=== PATIENT | male | born 1945 | race Caucasian/White ===

== ENCOUNTER 2020-01-14 20:57 | Inpatient (IN) | payer OTHER ==
[~2020-01-14] VITALS: Ht 180.3 cm; Wt 90.7 kg
[2020-01-14] MEDS ORDERED: TAMS0.4C PO (21:45)
[2020-01-14] MEDS ORDERED: AGRYLIN0.5 M1 PO (21:45)
[2020-01-14] MEDS ORDERED: COZAAR25 MG PO (21:45)
[2020-01-14] MEDS ORDERED: ADALAT CC90 MG PO (21:46)
[2020-01-14] MEDS ORDERED: SYNTHROID75 MCG PO (21:46)
[2020-01-14] MEDS ORDERED: TENORMIN100 M1 PO (21:46)
[2020-01-14] MEDS ORDERED: BUMETANIDE0.25 MG/1 IJ (21:46)
[2020-01-14] MEDS ORDERED: PROTONIX40 M1 PO (21:47)
[2020-01-14] MEDS ORDERED: LASIX20 MG PO (21:47)
[2020-01-14] MEDS ORDERED: ASPIR 8181 MG PO (21:47)
== END 2020-01-27 15:00 | disposition home health service (06) | DRG 673 ==
LOC: ER 20:57 → EDBD 21:11 → ER 21:11 → SURH 01-15 13:20 → MEDJ 01-15 13:20 → SURH 01-15 14:09
PROVIDERS: Radiology Vascular & Interventional Radiology; ADMIT Specialist; ATTEND Specialist
PROC: BW21ZZZ Computerized Tomography (CT Scan) of Abdomen and Pelvis (ICD-10-PCS; 2020-01-15)
PROC: 3E0F7GC Introduction of Other Therapeutic Substance into Respiratory Tract, Via Natural or Artificial Opening (ICD-10-PCS; 2020-01-15)
PROC: 0T9B70Z Drainage of Bladder with Drainage Device, Via Natural or Artificial Opening (ICD-10-PCS; 2020-01-15)
PROC: 8E0ZXY6 Isolation (ICD-10-PCS; 2020-01-15)
PROC: B24BZZZ Ultrasonography of Heart with Aorta (ICD-10-PCS; 2020-01-16)
PROC: 5A1D70Z Performance of Urinary Filtration, Intermittent, Less than 6 Hours Per Day (ICD-10-PCS; 2020-01-17)
PROC: 0JHD3XZ Insertion of Tunneled Vascular Access Device into Right Upper Arm Subcutaneous Tissue and Fascia, Percutaneous Approach (ICD-10-PCS; principal; 2020-01-17 16:00)
PROC: 30233N1 Transfusion of Nonautologous Red Blood Cells into Peripheral Vein, Percutaneous Approach (ICD-10-PCS; 2020-01-18)
PROC: C21G1ZZ Planar Nuclear Medicine Imaging of Myocardium using Technetium 99m (Tc-99m) (ICD-10-PCS; 2020-01-19)
PROC: B54PZZZ Ultrasonography of Bilateral Upper Extremity Veins (ICD-10-PCS; 2020-01-24)
DX: N17.9 Acute kidney failure, unspecified (principal); I50.43 Acute on chronic combined systolic (congestive) and diastolic (congestive) heart failure; I13.2 Hypertensive heart and chronic kidney disease with heart failure and with stage 5 chronic kidney disease, or end stage renal disease; R18.8 Other ascites; J90 Pleural effusion, not elsewhere classified; J98.11 Atelectasis; I31.3 Pericardial effusion (noninflammatory); N18.5 Chronic kidney disease, stage 5; I08.3 Combined rheumatic disorders of mitral, aortic and tricuspid valves; D63.1 Anemia in chronic kidney disease; D47.3 Essential (hemorrhagic) thrombocythemia; Z20.828 Contact with and (suspected) exposure to other viral communicable diseases; Z99.2 Dependence on renal dialysis

== ENCOUNTER → 2020-04-06 08:25 | Outpatient (CLI) | payer OTHER ==
[~2020-04-06 08:25] MED LIST: ADALAT CC90 MG PO; AGRYLIN0.5 M1 PO; ASPIR 8181 MG PO; BUMETANIDE0.25 MG/1 IJ; COZAAR25 MG PO; LASIX20 MG PO; PROTONIX40 M1 PO; SYNTHROID75 MCG PO; TAMS0.4C PO; TENORMIN100 M1 PO
== END | disposition home or self-care (01) ==
LOC: LAB 08:25
PROVIDERS: ATTEND Internal Medicine Cardiovascular Disease
DX: I22.8 Subsequent ST elevation (STEMI) myocardial infarction of other sites (principal)

== ENCOUNTER 2020-10-12 07:45 | Outpatient (CLI) | payer OTHER | END 2020-10-12 07:48 | disposition home or self-care (01) | LOC: NUCLEAR 07:45 | PROVIDERS: ATTEND Internal Medicine Cardiovascular Disease | DX: D47.01 Cutaneous mastocytosis (principal) | CPT/HCPCS: 78472; 78496; A9560 ==